=== PATIENT | female | born 1930 | race Caucasian/White ===

== ENCOUNTER 2017-05-13 10:59 | Observation (INO) | payer OTHER ==
[~2017-05-13] VITALS: Ht 152.4 cm; Wt 46.6 kg
[~2017-05-13 10:59] MED LIST: ASPECUNK PO; LSN/10125 PO; OMEP20CA9 PO; SIMV-151 PO; VTMD1000 PO
[2017-05-13] MEDS ORDERED: ASPI-435 PO (11:33)
[2017-05-13 11:49] LABS: BASO % 0.3 %; BASO ABS # 0.01 K/uL (0-0.2); COMPLETE YES; EOS % 0.3 %; HEMATOCRIT 31.6 % (37-47); LYMPH ABS # 0.52 K/uL (1.2-3.4); MEAN CELL VOLUME 92.4 fL (80-100); MEAN CORPUSCULAR HEMOGLOBIN 28.7 pg (25-34); MEAN PLATELET VOLUME 9.8 fL (7.4-10.4); MONO % 3.2 %; NEUT % 82.2 %; PLATELET COUNT 273 K/uL (130-400); RED BLOOD COUNT 3.42 M/uL (4.2-5.4); WHITE BLOOD COUNT 3.71 K/uL (4.8-10.8)
[2017-05-13 12:08] LABS: BUN/CREATININE RATIO 20.9 (10-20); CALCIUM 8.5 mg/dl (8.5-10.1); CREATININE 1.2 mg/dl (0.60-1.20); POTASSIUM 4.6 mmol/L (3.5-5.1)
[2017-05-13] MEDS ORDERED: SODIUM CHLORIDE 0.9% 1000ML 1,000 ML IV STA (12:30)
--- NOTE | 2017-05-13 12:46 | DIAGNOSTIC IMAGING REPORT ---
HEAD WITHOUT CONTRAST (CT) CT DOSE: 537.48 mGy.cm HISTORY: Mental status change dizziness TECHNIQUE: Multiaxial CT images of the head were performed without the use of intravenous contrast. Comparison: None. Findings: The paranasal sinuses and mastoid air cells are clear. The calvarium and skull base are intact. The ventricles and sulci are within normal limits. There is no mass, hematoma, midline shift, or acute infarct. Impression: No acute intracranial abnormality. The above report was generated using voice recognition software. It may contain grammatical, syntax or spelling errors. Electronically signed by: Bg Vera M.D. 05/13/2017 12:45 PM Dictated Date/Time: 05/13/2017 12:44 PM
[2017-05-13] MEDS ORDERED: MECLIZINE HCL 25 MG TAB PO STA (13:29)
--- NOTE | 2017-05-13 13:59 | EMERGENCY ROOM VISIT NOTE ---
History Report prepared by Prem: Kalyani Domingo Under the Supervision of: Dr. Tunde Ellison D.O. First contact with patient: 12:21 Chief Complaint: DIZZY Stated Complaint: DIZZY/NAUSEA Nursing Triage Summary: pt arrived als from home reported dizziness when standing started yesturday afternoon when medics arrived pt was crawling on the steps to get around, pt emisis x one at home pt was provided with 4 mg zofran and 1 mg of ativan in route pt states as long as she is sitting she is fine denies head pain History of Present Illness The patient is a 87 year old female who presents to the Emergency Room with complaints of intermittent dizziness beginning yesterday. The patient states that she began to feel dizzy while she was gardening yesterday. She reports that she was feeling lightheaded and had difficulty standing up so she went inside and went to sleep early. She notes that in the middle of the night she went to the bathroom and was extremely lightheaded and dizzy with standing. The patient states that she stayed on the bathroom floor for 3 hours last night before crawling back to bed. Today she states that her symptoms have not resolved and she is still not able to stand without feeling dizzy. The patient complains of nausea. She denies any falls and loss of consciousness. She notes that movement of her head increases her dizziness. She states that she lives in the [facility] and has noticed ticks on her before. Source of History: patient Onset: yesterday Position: other (global) Quality: other (dizziness) Timing: intermittent Modifying Factors (Worsening): movement, other (standing) Associated Symptoms: + nausea, No LOC Note: Pt complains of lightheadedness. She denies any falls. Review of Systems See HPI for pertinent positives & negatives. A total of 10 systems reviewed and were otherwise negative. Past Medical & Surgical Medical Problems: (1) No Known Active Medical Problems Family History No significant family history Social History Smoking Status: Never Smoker Marital Status: Housing Status: lives with significant other Occupation Status: retired Current/Historical Medications Scheduled Aspirin (Aspirin 81), 81 MG PO DAILY Cholecalciferol (Vitamin D3), 1,000 INTER.UNIT PO QAM Hctz/Lisinopril (Lisinopril/Hctz 10/12.5 Mg), 1 TAB PO DAILY Omeprazole (Prilosec), 20 MG PO DAILY Simvastatin (Simvastatin), 20 MG PO HS Allergies Coded Allergies: Amoxicillin (Unverified Allergy, Unknown, HIVES, 05/13/17) Physical Exam Vital Signs Date Time Temp Pulse Resp B/P (MAP) Pulse Ox O2 Delivery O2 Flow Rate FiO2 05/13/17 13:44 74 16 96 05/13/17 13:31 169/90 05/13/17 13:29 77 16 98 05/13/17 13:15 160/87 05/13/17 12:29 80 18 97 05/13/17 12:28 166/85 05/13/17 12:14 79 16 98 05/13/17 12:11 83 05/13/17 12:04 80 17 169/89 93 Room Air 05/13/17 11:59 79 19 05/13/17 11:44 78 16 88 05/13/17 11:30 83 05/13/17 11:29 82 14 169/89 97 05/13/17 11:14 82 14 95 05/13/17 11:09 36.8 86 16 192/94 100 Room Air 05/13/17 11:03 192/94 Physical Exam VITAL SIGNS: were reviewed as above. GENERAL:Non-toxic in appearance. SKIN: Warm dry and pink. HEAD: Normocephalic and atraumatic. OROPHARYNX: Is clear and moist NECK: Supple without lymphadenopathy or meningismus. LUNGS: clear. HEART: Regular rate and rhythm. ABDOMEN: Soft and nontender. EXTREMITIES: Warm and well perfused. NEUROLOGICALLY: Awake alert and oriented without focal deficit. Cranial nerves 2 -12 are intact. There is no pronator drift. Cerebellar testing is within normal limits. There is no nystagmus. There is no facial droop. Speech is clear. Vision is grossly normal. MUSCULOSKELETAL: Good muscle tone. No evidence of trauma. Medical Decision & Procedures ER Provider Diagnostic Interpretation: CT results as stated below per my review and radiologist interpretation: HEAD WITHOUT CONTRAST (CT) Findings: The paranasal sinuses and mastoid air cells are clear. The calvarium and skull base are intact. The ventricles and sulci are within normal limits. There is no mass, hematoma, midline shift, or acute infarct. Impression: No acute intracranial abnormality. The above report was generated using voice recognition software. It may contain grammatical, syntax or spelling errors. Electronically signed by: Bg Vera M.D. 05/13/2017 12:45 PM Dictated Date/Time: 05/13/2017 12:44 PM Laboratory Results 05/13/17 11:30 Red Blood Count 3.42, Mean Corpuscular Volume 92.4, Mean Corpuscular Hemoglobin 28.7, Mean Corpuscular Hemoglobin Concent 31.0, Mean Platelet Volume 9.8, Neutrophils (%) (Auto) 82.2, Lymphocytes (%) (Auto) 14.0, Monocytes (%) (Auto) 3.2, Eosinophils (%) (Auto) 0.3, Basophils (%) (Auto) 0.3, Neutrophils # (Auto) 3.05, Lymphocytes # (Auto) 0.52, Monocytes # (Auto) 0.12, Eosinophils # (Auto) 0.01, Basophils # (Auto) 0.01 05/13/17 11:30 Test 05/13/17 11:30 White Blood Count 3.71 K/uL (4.8-10.8) Red Blood Count 3.42 M/uL (4.2-5.4) Hemoglobin 9.8 g/dL (12.0-16.0) Hematocrit 31.6 % (37-47) Mean Corpuscular Volume 92.4 fL (80-100) Mean Corpuscular Hemoglobin 28.7 pg (25-34) Mean Corpuscular Hemoglobin Concent 31.0 g/dl (32-36) Platelet Count 273 K/uL (130-400) Mean Platelet Volume 9.8 fL (7.4-10.4) Neutrophils (%) (Auto) 82.2 % Lymphocytes (%) (Auto) 14.0 % Monocytes (%) (Auto) 3.2 % Eosinophils (%) (Auto) 0.3 % Basophils (%) (Auto) 0.3 % Neutrophils # (Auto) 3.05 K/uL (1.4-6.5) Lymphocytes # (Auto) 0.52 K/uL (1.2-3.4) Monocytes # (Auto) 0.12 K/uL (0.11-0.59) Eosinophils # (Auto) 0.01 K/uL (0-0.5) Basophils # (Auto) 0.01 K/uL (0-0.2) RDW Standard Deviation 47.3 fL (36.4-46.3) RDW Coefficient of Variation 13.9 % (11.5-14.5) Immature Granulocyte % (Auto) 0.0 % Immature Granulocyte # (Auto) 0.00 K/uL (0.00-0.02) Anion Gap 7.0 mmol/L (3-11) Est Creatinine Clear Calc Drug Dose 23.3 ml/min Estimated GFR () 46.7 Estimated GFR (Non- 40.3 BUN/Creatinine Ratio 20.9 (10-20) Calcium Level 8.5 mg/dl (8.5-10.1) Total Bilirubin 0.3 mg/dl (0.2-1) Aspartate Amino Transf (AST/SGOT) 20 U/L (15-37) Alanine Aminotransferase (ALT/SGPT) 15 U/L (12-78) Alkaline Phosphatase 59 U/L (45-117) Total Protein 6.4 gm/dl (6.4-8.2) Albumin 3.2 gm/dl (3.4-5.0) Globulin 3.2 gm/dl (2.5-4.0) Albumin/Globulin Ratio 1.0 (0.9-2) Lyme Disease IgG Antibody NEG (NEG) Laboratory results as stated above per my review. Medications Administered Medications (Trade) Dose Ordered Sig/Michaela Route Start Time Stop Time Status Last Admin Dose Admin Sodium Chloride 1,000 ml @ 999 mls/hr Q1H1M STAT IV 05/13/17 12:30 05/13/17 13:30 DC 05/13/17 12:30 999 MLS/HR Meclizine HCl (Antivert Tab) 25 mg NOW STAT PO 05/13/17 13:29 05/13/17 13:30 DC 05/13/17 13:48 25 MG ECG Indication: weakness Rate (beats per minute): 83 Rhythm: normal sinus Findings: no acute ischemic change, no ectopy ED Course 1221: Previous medical records were reviewed. The patient was evaluated in room C7. A complete history and physical examination was performed. 1230: Sodium Chloride 1000 ml @ 999 mls/hr IV. 1329: Antivert Tab 25mg PO. 1331: I reevaluated and updated the patient. She feels the same and is still weak and dizzy when she stands up. 1342: I spoke to Dr. Fan about the patients case. He will evaluate the patient for further management. 1349: On reevaluation, the patient is doing well. I discussed the results and findings with the patient. She verbalized agreement of the treatment plan. The patient was discharged home. Medical Decision Differential includes acute coronary syndrome, myocardial infarction, CVA, TIA, anemia, infection, pneumonia, UTI, pyelonephritis, poor nutrition, dehydration, electrolyte disturbance,hypoglycemia. Medication Reconciliation: I attest that I have personally reviewed the patient' s current medication list. Blood pressure Screening: Patient was found to have an elevated blood pressure and was referred to their primary doctor for recheck and further treatment. This is an 87-year-old female who presents to the ED with a chief complaint of feeling dizzy when she was standing up when she awoke this morning. She states that she was also dizzy yesterday while she was gardening and this is when her symptoms started. She states that she got up to go the bathroom in the middle the night and became dizzy and lightheaded and had to crawl to the bathroom. Her dizziness seems to be worse with any movement of her head. She states that she was even feeling dizzy while she was crawling today. She did not have any focal deficits. No headaches. She did have 1 episode of vomiting associated with her dizziness this morning. Denies recent illness or fevers. No chest pains or shortness of breath. Initial blood pressure here was 192/94. This improved to 169/89. The patient has a normal neuro exam without appreciable nystagmus. She has no focal weakness. Her hemoglobin today is 9.8. She has guaiac negative stools. BUN is 25. Complete metabolic panel was unremarkable. Glucose is 138. Normal sinus rhythm was seen on the EKG. CT scan of the head did not show any acute process. The patient was treated with IV fluids. She was given some by mouth meclizine. She was without change. She was quite symptomatic when she would attempt to move. She did not feel like she could walk. Because of the continuing symptoms, she'll be seen by the hospitalist for further inpatient evaluation. Consults Time Called: [phone] Consulting Physician: Dr. Meng Yang Returned Call: [address] Fan about the patients case. He will evaluate the patient for further management. Impression Primary Impression: Dizziness Additional Impression: Weakness Scribe Attestation The scribe's documentation has been prepared under my direction and personally reviewed by me in its entirety. I confirm that the note above accurately reflects all work, treatment, procedures, and medical decision making performed by me. Departure Information Dispostion Being Evaluated By Hospitalist Referrals No Doctor, Assigned (PCP) Patient Instructions My [facility] Problem Qualifiers
[2017-05-13] MEDS ORDERED: ACETAMINOPHEN 325 MG TAB PO PRN (14:15)
[2017-05-13] MEDS ORDERED: ONDANSETRON INJ 2 MG/ML 2 ML VIAL IV PRN (14:15)
[2017-05-13 14:34] LABS: URINE APPEARANCE CLEAR (CLEAR); URINE BILIRUBIN NEG (NEG); URINE COLOR YELLOW; URINE NITRITE NEG (NEG); URINE PH 7.5 (4.5-7.5); URINE SPECIFIC GRAVITY 1.015 (1.000-1.030); UROBILINOGEN NEG (NEG); ZZUR CULT IF INDIC CLEAN CATCH NO
[2017-05-13 14:41] LABS: MANUAL MICROSCOPIC REQUIRED? NO; REVIEW REQ? NO
[2017-05-13] MEDS ORDERED: LISINOPRIL 20 MG TAB PO STA (14:44)
--- NOTE | 2017-05-13 14:45 | History and Physical ---
History & Physical Date & Time of Service: May 13, 2017 at 14:17 Chief Complaint: Dizzy/Nausea Primary Care Physician: John Parikh M.D. History of Present Illness Source: patient, family, clinic records This is an 87 year old female who lives alone, with a PMH of HTN, HLD, CKD stage 3 presents with a one day history of dizziness, weakness, nausea/vomiting - she states that she was working in the yard yesterday doing some gardening - states that she got dizzy and went back inside. At night, she tried walking to the bathroom and vomiting numerous times due to dizziness; had to crawl to get to the bathroom; remained dizzy, weak, tired today (May 13) and so presented to the ER. Has never had this before. Was not sick prior to this event. Son mentions that she does not drink enough water. Patient denies chest pain or shortness of breath. No fevers/chills. Family History No significant family history Social History Smoking Status: Never Smoker Marital Status: Occupational Status: retired Multi-Drug Resistant Organisms History of MDRO: No Allergies Coded Allergies: Amoxicillin (Unverified Allergy, Unknown, HIVES, 05/13/17) Home Medications Scheduled Aspirin (Aspirin 81), 81 MG PO DAILY Cholecalciferol (Vitamin D3), 1,000 INTER.UNIT PO QAM Hctz/Lisinopril (Lisinopril/Hctz 10/12.5 Mg), 1 TAB PO DAILY Omeprazole (Prilosec), 20 MG PO DAILY Simvastatin (Simvastatin), 20 MG PO HS Review of Systems Constitutional: + weakness, + fatigue, No fever, No chills Eyes: No worsening of vision ENT: No hearing loss Respiratory: No cough, No sputum, No shortness of breath, No dyspnea on exertion, No dyspnea at rest, No hemoptysis Cardiovascular: No chest pain, No edema, No palpitations Abdomen: + nausea, + vomiting, No pain, No diarrhea, No constipation, No GI bleeding Musculoskeletal: No joint pain, No muscle pain Genitourinary - Female: No dysuria, No urinary frequency, No urinary urgency, No urinary incontinence, No urinary retention, No hematuria Neurologic: + weakness, + vertigo, + balance problems, No memory loss, No paralysis, No numbness/tingling Psychiatric: No depression symptoms, No anxiety, No insomnia Endocrine: No fatigue Hematologic / Lymphatic: No abnormal bleeding/bruising Integumentary: No rash Allergic / Immunologic: No environmental allergies, No seasonal allergies Physical Exam Vital Signs Date Time Temp Pulse Resp B/P (MAP) Pulse Ox O2 Delivery O2 Flow Rate FiO2 05/13/17 13:44 74 16 96 05/13/17 13:31 169/90 05/13/17 13:29 77 16 98 05/13/17 13:15 160/87 05/13/17 12:29 80 18 97 05/13/17 12:28 166/85 05/13/17 12:14 79 16 98 05/13/17 12:11 83 05/13/17 12:04 80 17 169/89 93 Room Air 05/13/17 11:59 79 19 05/13/17 11:44 78 16 88 05/13/17 11:30 83 05/13/17 11:29 82 14 169/89 97 05/13/17 11:14 82 14 95 05/13/17 11:09 36.8 86 16 192/94 100 Room Air 05/13/17 11:03 192/94 General Appearance: no apparent distress Head: normocephalic, atraumatic Eyes: normal inspection ENT: hearing grossly normal Neck: supple Respiratory/Chest: chest non-tender, lungs clear, normal breath sounds, no respiratory distress, no accessory muscle use Cardiovascular: regular rate, rhythm, no edema, no murmur Abdomen/GI: normal bowel sounds, non tender, soft Extremities/Musculoskelatal: no calf tenderness, normal capillary refill, no pedal edema Neurologic/Psych: no motor/sensory deficits, alert, normal mood/affect Skin: normal color Lymphatic: no adenopathy Diagnostics Laboratory Results Results Past 24 Hours Test 05/13/17 11:30 05/13/17 14:11 Range/Units White Blood Count 3.71 4.8-10.8 K/uL Red Blood Count 3.42 4.2-5.4 M/uL Hemoglobin 9.8 12.0-16.0 g/dL Hematocrit 31.6 37-47 % Mean Corpuscular Volume 92.4 80-100 fL Mean Corpuscular Hemoglobin 28.7 25-34 pg Mean Corpuscular Hemoglobin Concent 31.0 32-36 g/dl Platelet Count 273 130-400 K/uL Mean Platelet Volume 9.8 7.4-10.4 fL Neutrophils (%) (Auto) 82.2 % Lymphocytes (%) (Auto) 14.0 % Monocytes (%) (Auto) 3.2 % Eosinophils (%) (Auto) 0.3 % Basophils (%) (Auto) 0.3 % Neutrophils # (Auto) 3.05 1.4-6.5 K/uL Lymphocytes # (Auto) 0.52 1.2-3.4 K/uL Monocytes # (Auto) 0.12 0.11-0.59 K/uL Eosinophils # (Auto) 0.01 0-0.5 K/uL Basophils # (Auto) 0.01 0-0.2 K/uL RDW Standard Deviation 47.3 36.4-46.3 fL RDW Coefficient of Variation 13.9 11.5-14.5 % Immature Granulocyte % (Auto) 0.0 % Immature Granulocyte # (Auto) 0.00 0.00-0.02 K/uL Sodium Level 145 136-145 mmol/L Potassium Level 4.6 3.5-5.1 mmol/L Chloride Level 109 98-107 mmol/L Carbon Dioxide Level 29 21-32 mmol/L Anion Gap 7.0 3-11 mmol/L Blood Urea Nitrogen 25 7-18 mg/dl Creatinine 1.20 0.60-1.20 mg/dl Est Creatinine Clear Calc Drug Dose 23.3 ml/min Estimated GFR () 46.7 Estimated GFR (Non- 40.3 BUN/Creatinine Ratio 20.9 10-20 Random Glucose 138 70-99 mg/dl Calcium Level 8.5 8.5-10.1 mg/dl Total Bilirubin 0.3 0.2-1 mg/dl Aspartate Amino Transf (AST/SGOT) 20 15-37 U/L Alanine Aminotransferase (ALT/SGPT) 15 12-78 U/L Alkaline Phosphatase 59 45-117 U/L Total Protein 6.4 6.4-8.2 gm/dl Albumin 3.2 3.4-5.0 gm/dl Globulin 3.2 2.5-4.0 gm/dl Albumin/Globulin Ratio 1.0 0.9-2 Lyme Disease IgG Antibody NEG NEG Diagnostic Radiology HEAD WITHOUT CONTRAST (CT) CT DOSE: 537.48 mGy.cm HISTORY: Mental status change dizziness TECHNIQUE: Multiaxial CT images of the head were performed without the use of intravenous contrast. Comparison: None. Findings: The paranasal sinuses and mastoid air cells are clear. The calvarium and skull base are intact. The ventricles and sulci are within normal limits. There is no mass, hematoma, midline shift, or acute infarct. Impression: No acute intracranial abnormality. EKG Normal sinus rhythm Normal ECG Impression Assessment and Plan This is an 87 year old female who lives alone, with a PMH of HTN, HLD, CKD stage 3 presents with a one day history of dizziness Vertigo patient with dizziness upon standing possibly dehydration, heat exhaustion, vertigo playing a part in dizziness Head CT negative EKG with no will obtain PT/OT - PT for Zev meclizine PRN Zofran PRN will check an echo orthostatics monitor in tele will give gentle hydration CKD stage 3 creatinine = 1.2 close to baseline will give some IV hydration, possibly dehydrated HTN blood pressure elevated on admission patient takes HCTZ-Lisinopril hold thiazide to avoid further dehydration give Lisinopril 20mg DVT ppx subq heparin FULL CODE will need discharge planning evaluation - lives alone VTE Prophylaxis VTE Risk Assessment Done? Y/N: Yes Risk Level: Moderate
[2017-05-13] MEDS ORDERED: IV FLUIDS COMPLETED PRN (15:00)
[2017-05-13 15:45] VITALS: BP 180/88; PULSE 80; TEMP 36.4; O2SAT 97; Ht 152.4 cm; Wt 46.6 kg
[2017-05-13 15:46] LABS: PROTHROMBIN TIME (PATIENT) 10.8 SECONDS (9.0-12.0)
[2017-05-13 16:56] VITALS: BP 172/86
[2017-05-13] MEDS: SODIUM CHLORIDE 0.9% 1000ML 1,000 ML IV SCH (17:06)
[2017-05-13] MEDS: BOOST VANILLA PO SCH ×2 (17:12)
[2017-05-13 18:25] VITALS: BP 146/72
[2017-05-13 19:16] VITALS: BP 165/78; PULSE 75; TEMP 36.4; O2SAT 97
[2017-05-13] MEDS: SIMVASTATIN 20 MG TAB PO SCH (21:26)
[2017-05-13] MEDS: HEPARIN SOD 5000 UNIT/0.5 ML CARP SQ SCH (21:27)
[2017-05-13 23:09] VITALS: BP 128/67; PULSE 79; TEMP 36.5; O2SAT 96
[2017-05-13 23:17] VITALS: BP_SYST 156; BP_SYST 162; BP_DIAS 85; BP_DIAS 89; PULSE 82; PULSE 83
[2017-05-14] VITALS (11 sets, daily range): BP systolic 119–196; BP diastolic 66–105; PULSE 68–85; TEMP 36.4–36.9; O2SAT 93–99
[2017-05-14 02:31] LABS: CKMB/CK RATIO 1.4 (0-3.0)
[2017-05-14] MEDS: SODIUM CHLORIDE 0.9% 1000ML 1,000 ML IV SCH ×2 (03:14→15:22)
[2017-05-14] MEDS: HEPARIN SOD 5000 UNIT/0.5 ML CARP SQ SCH ×2 (06:03→20:23)
[2017-05-14] MEDS: BOOST VANILLA PO SCH ×6 (08:02→16:20)
[2017-05-14] MEDS: ASPIRIN 81 MG ECTAB PO SCH (08:02)
[2017-05-14] MEDS: LISINOPRIL 20 MG TAB PO SCH (08:03)
[2017-05-14] MEDS: MECLIZINE HCL 25 MG TAB PO PRN ×2 (08:04→12:54)
[2017-05-14 08:21] LABS: CKMB/CK RATIO 1.1 (0-3.0)
--- NOTE | 2017-05-14 12:50 | Progress Note ---
Medicine Progress Note Date & Time of Visit: May 14, 2017 at 12:50. Subjective seen with son at bedside sitting on the bedside chair, alert, oriented x 3 states her dizziness is about the same worse with standing, moving her head to the left denies any other neuro symptoms no chest pain, dyspnea, dizziness, nausea no other symptoms Objective Last 8 Hrs Date Time Temp Pulse Resp B/P (MAP) Pulse Ox O2 Delivery O2 Flow Rate FiO2 05/14/17 11:40 36.6 73 16 166/97 (120) 99 Room Air 05/14/17 08:00 Room Air 05/14/17 07:59 157/80 (105) 05/14/17 06:44 85 18 193/101 (131) 96 Room Air 05/14/17 06:42 85 18 176/88 (117) 97 Room Air 05/14/17 06:39 36.4 82 16 175/87 (116) 93 Room Air Physical Exam: General- oriented x 3, not in distress, speaks in sentences with no effort Head- atraumatic Eyes- EOMI, anicteric ENT- oropharynx clear Neck- supple, no JVD, no adenopathy, no thyromegaly Lungs- clear breath sounds bilaterally Heart- regular rhythm; no murmur, normal rate Abdomen- normal bowel sounds, soft, nontender, non distended Extremities- no pretibial edema, no calf tenderness Neuro- alert, oriented x 3; PERRL, EOMI; no facial palsy; no dysarthria; motor 5 /5 bilaterally; sensation 100% Skin- warm & dry Laboratory Results: Last 24 Hours Test 05/13/17 14:09 05/13/17 20:10 05/13/17 21:26 05/14/17 02:02 Urine Color YELLOW Urine Appearance CLEAR Urine pH 7.5 Urine Specific [place] 1.015 Urine Protein NEG Urine Glucose (UA) NEG Urine Ketones NEG Urine Occult Blood NEG Urine Nitrite NEG Urine Bilirubin NEG Urine Urobilinogen NEG Urine Leukocyte Esterase NEG Total Creatine Kinase U/L 243 U/L 227 U/L Creatine Kinase MB 4.1 ng/ml 3.1 ng/ml Creatine Kinase MB Ratio 1.4 Troponin I 0.015 ng/ml 0.019 ng/ml Test 05/14/17 07:42 Total Creatine Kinase 220 U/L Creatine Kinase MB 2.4 ng/ml Creatine Kinase MB Ratio 1.1 Troponin I < 0.015 ng/ml Assessment & Plan 87 year old female with history of hypertension presenting with dizziness. DIZZINESS, LIKELY VERTIGO - symptoms preceded by doing yardwork - CT head: negative Brain MRI: no acute CVA Echo: * -- Conclusions -- * Ejection Fraction = 65-70%. * Grade I diastolic dysfunction, (abnormal relaxation pattern). * Aortic valve sclerosis mild, without significant aortic valvular stenosis. * There is mild tricuspid regurgitation. * Doppler findings do not suggest pulmonary hypertension. Cardiac markers: negative Orthostatic BP: negative -- add PRN Reglan and Ativan PO for severe dizziness continue Meclizine PRN -- PT performed Zev's maneuver with no apparent change UNCONTROLLED HYPERTENSION -- usually on Lisinopril/HCTZ10/12.5mg po daily -- d/c HCTZ as patient seemed dehydrated on admission -- Lisinopril increased to 20mg po Amlodipine 5mg po added -- monitor BP CKD stage 3 creatinine = 1.2 close to baseline -- received IV fluids monitor DVT ppx subq heparin FULL CODE Disposition pending lives alone PT/OT eval Current Inpatient Medications: Current Inpatient Medications Medications (Trade) Dose Ordered Sig/Michaela Route Start Time Stop Time Status Last Admin Dose Admin Sodium Chloride 1,000 ml @ 80 mls/hr [id number] IV 05/13/17 14:11 06/12/17 14:10 05/14/17 03:14 80 MLS/HR Acetaminophen (Tylenol Tab) 650 mg Q4H PRN PO 05/13/17 14:15 06/12/17 14:14 Ondansetron HCl (Zofran Inj) 4 mg Q6H PRN IV 05/13/17 14:15 06/12/17 14:14 Meclizine HCl (Antivert Tab) 25 mg TID PRN PO 05/13/17 14:15 06/12/17 14:14 05/14/17 08:04 25 MG Aspirin (Ecotrin Tab) 81 mg DAILY PO 05/14/17 09:00 06/13/17 08:59 05/14/17 08:02 81 MG Simvastatin (Zocor Tab) 20 mg HS PO 05/13/17 21:00 06/12/17 20:59 05/13/17 21:26 20 MG Lisinopril (Zestril Tab) 20 mg QAM PO 05/14/17 09:00 06/13/17 08:59 05/14/17 08:03 20 MG Enteral Nutritional Formula (Boost) 1 can TIDM PO 05/13/17 16:45 06/12/17 17:59 05/14/17 11:25 1 CAN Miscellaneous (Iv Fluids Completed) 1 ea PRN PRN N/A 05/13/17 15:00 05/13/18 14:59 Heparin Sodium (Porcine) (Heparin Sq 5000 Unit/0.5ml) 5,000 unit Q12 SQ 05/14/17 21:00 06/12/17 21:59 UNV
[2017-05-14] MEDS ORDERED: AMLODIPINE BESYLATE 5 MG TAB PO ONE ×2 (13:00→17:30)
--- NOTE | 2017-05-14 14:55 | ECHOCARDIOGRAM REPORT ---
*NOTICE TO RECEIVING [employer] [employer] This information is strictly Confidential and protected under [place] law. [place] law prohibits you from making any further disclosure of this information unless further disclosure is expressly permitted by the written consent of the person to whom it pertains or is authorized by law. A general authorization for the release of medical or other information is not sufficient for this purpose. Hospital accepts no responsibility if the information is made available to any other person, INCLUDING THE PATIENT. Interpretation Summary * Name: WILLIS MONCADA V Study Date: 05/14/2017 07:10 AM BP: 119/66 mmHg * Patient Location: C.2E\S\E209\S\1 HR: 81 * : 1930 (M/d/yyyy) Gender: Female Height: 60 in * Age: 87 yrs Ethnicity: [place] Weight: 105 lb * Ordering Physician: Marysol Fan * Referring Physician: Self, Referred * Performed By: Stephanie Poon RCS * * BSA: 1.4 m2 * The study was technically adequate. * There is no comparison study available. * -- Conclusions -- * Ejection Fraction = 65-70%. * Grade I diastolic dysfunction, (abnormal relaxation pattern). * Aortic valve sclerosis mild, without significant aortic valvular stenosis. * There is mild tricuspid regurgitation. * Doppler findings do not suggest pulmonary hypertension. Procedure Details * A complete two-dimensional transthoracic echocardiogram was performed (2D, M-mode, Doppler and color flow Doppler). Left Ventricle * The left ventricle is normal in size. * There is no thrombus. * There is normal left ventricular wall thickness. * Ejection Fraction = 65-70%. * Left ventricular systolic function is normal. * The left ventricular wall motion is normal. Right Ventricle * The right ventricle is normal size. * The right ventricular systolic function is normal as assessed by tricuspid annular plane systolic excursion (TAPSE) (normal >1.5 cm). Atria * The left atrial size is normal. * Right atrial size is normal. * There is no evidence of atrial septal defect, but resolution does not allow assessment for a patent foramen ovale. Mitral Valve * There is moderate mitral annular calcification. * There is no mitral valve stenosis. * Significant mitral regurgitation is absent. Tricuspid Valve * The tricuspid valve is normal. * There is no tricuspid stenosis. * There is mild tricuspid regurgitation. * Doppler findings do not suggest pulmonary hypertension. Aortic Valve * The aortic valve is trileaflet. * Aortic valve sclerosis mild, without significant aortic valvular stenosis. * Aortic stenosis is absent. * There is no significant aortic regurgitation. Pulmonic Valve * The pulmonary valve is inadequately visualized, but the Doppler data is adequate for interpretation. * There is no pulmonic valvular stenosis. * Trace pulmonic valvular regurgitation. Great Vessels * The aortic root is normal size. Pericardium/Pleural * There is no pericardial effusion. Great Vessels * Normal inferior vena cava diameter and respiratory variation suggests normal central venous pressure. Left Ventricular Diastolic Function * Grade I diastolic dysfunction, (abnormal relaxation pattern). MMode 2D Measurements and Calculations IVSd 1.0 cm LVIDd 3.4 cm LVIDs 2.3 cm LVPWd 1.0 cm IVS/LVPW 0.98 FS 34.0 % EDV(Teich) 48.4 ml ESV(Teich) 17.4 ml EF(Teich) 64.1 % EDV(cubed) 40.3 ml ESV(cubed) 11.6 ml EF(cubed) 71.3 % LV mass(C)d 102.9 grams LV mass(C)dI 72.5 grams/m\S\2 SV(Teich) 31.1 ml SI(Teich) 21.9 ml/m\S\2 SV(cubed) 28.8 ml SI(cubed) 20.3 ml/m\S\2 Ao root diam 2.8 cm Ao root area 6.1 cm\S\2 asc Aorta Diam 3.1 cm LVOT diam 2.0 cm LVOT area 3.0 cm\S\2 LVAd ap4 21.7 cm\S\2 LVLd ap4 7.7 cm EDV(MOD-sp4) 49.7 ml EDV(sp4-el) 51.9 ml LVAs ap4 8.8 cm\S\2 LVLs ap4 5.7 cm ESV(MOD-sp4) 12.3 ml ESV(sp4-el) 11.4 ml EF(MOD-sp4) 75.3 % EF(sp4-el) 78.0 % LVAd ap2 19.7 cm\S\2 LVLd ap2 7.7 cm EDV(MOD-sp2) 41.5 ml EDV(sp2-el) 42.4 ml LVAs ap2 9.5 cm\S\2 LVLs ap2 5.7 cm ESV(MOD-sp2) 14.7 ml ESV(sp2-el) 13.4 ml EF(MOD-sp2) 64.5 % EF(sp2-el) 68.3 % LVLd %diff 0.88 % EDV(MOD-bp) 45.6 ml LVLs %diff -0.49 % ESV(MOD-bp) 13.4 ml EF(MOD-bp) 70.6 % SV(MOD-sp4) 37.5 ml SI(MOD-sp4) 26.4 ml/m\S\2 SV(MOD-sp2) 26.8 ml SI(MOD-sp2) 18.9 ml/m\S\2 SV(MOD-bp) 32.2 ml SI(MOD-bp) 22.7 ml/m\S\2 SV(sp4-el) 40.5 ml SI(sp4-el) 28.5 ml/m\S\2 SV(sp2-el) 28.9 ml SI(sp2-el) 20.4 ml/m\S\2 Doppler Measurements and Calculations MV E max essie 102.3 cm/sec MV A max essie 130.0 cm/sec MV E/A 0.79 MV dec time 0.18 sec Ao V2 max 152.0 cm/sec Ao max PG 9.2 mmHg Ao max PG (full) 5.3 mmHg DAJA(V,A) 2.0 cm\S\2 DAJA(V,D) 2.0 cm\S\2 LV V1 max PG 4.0 mmHg LV V1 max 99.9 cm/sec TR max essie 259.8 cm/sec
[2017-05-14 15:13] LABS: BASO % 0.3 %; BASO ABS # 0.01 K/uL (0-0.2); COMPLETE YES; EOS % 7.2 %; HEMATOCRIT 29.9 % (37-47); LYMPH % 33.7 %; LYMPH ABS # 1.03 K/uL (1.2-3.4); MEAN CELL VOLUME 93.4 fL (80-100); MEAN CORPUSCULAR HEMOGLOBIN 29.1 pg (25-34); MEAN CORPUSCULAR HGB CONC 31.1 g/dl (32-36); MEAN PLATELET VOLUME 9.3 fL (7.4-10.4); MONO % 8.8 %; PLATELET COUNT 253 K/uL (130-400); WHITE BLOOD COUNT 3.06 K/uL (4.8-10.8)
[2017-05-14 15:36] LABS: CREATININE 1.3 mg/dl (0.60-1.20)
[2017-05-14 15:37] LABS: BUN/CREATININE RATIO 18.1 (10-20); CALCIUM 8.5 mg/dl (8.5-10.1); POTASSIUM 4.4 mmol/L (3.5-5.1)
--- NOTE | 2017-05-14 16:11 | DIAGNOSTIC IMAGING REPORT ---
BRAIN WITHOUT CONTRAST HISTORY: Mental status change r/o cva TECHNIQUE: Multiplanar multisequence MRI of the brain was performed without the use of contrast. COMPARISON STUDY: None. FINDINGS: There are no areas of restricted diffusion to suggest acute infarction. The midline structures are intact. The paranasal sinuses are clear. The mastoid air cells are clear. The ventricles and sulci are within normal limits for age. There is no mass, hematoma, midline shift. The major vascular flow-voids at the skull base are well maintained. Mild cerebral atrophy. Moderate chronic small vessel change throughout both cerebral hemispheres. IMPRESSION: 1. No evidence for an acute ischemic event. 2. Moderate chronic small vessel change. 3. Mild cerebral atrophy. The above report was generated using voice recognition software. It may contain grammatical, syntax or spelling errors. Electronically signed by: Bg Vera M.D. 05/14/2017 4:10 PM Dictated Date/Time: 05/14/2017 4:06 PM
[2017-05-14] MEDS ORDERED: METOCLOPRAMIDE HCL INJ 5 MG/ML 2 ML VIAL IV STA (17:27)
[2017-05-14] MEDS ORDERED: METOCLOPRAMIDE HCL INJ 5 MG/ML 2 ML VIAL IV PRN (17:30)
[2017-05-14] MEDS ORDERED: LORAZEPAM 0.5 MG TAB PO PRN (17:30)
[2017-05-14] MEDS: SIMVASTATIN 20 MG TAB PO SCH (20:21)
[2017-05-15] VITALS (10 sets, daily range): BP systolic 114–153; BP diastolic 58–83; PULSE 80–87; TEMP 36.7–36.8; O2SAT 93–97
[2017-05-15 06:46] LABS: BUN/CREATININE RATIO 17.3 (10-20); CALCIUM 8.3 mg/dl (8.5-10.1); CREATININE 1.2 mg/dl (0.60-1.20); POTASSIUM 4.1 mmol/L (3.5-5.1)
[2017-05-15 07:13] LABS: BASO % 0.2 %; BASO ABS # 0.01 K/uL (0-0.2); COMPLETE YES; HEMATOCRIT 31.5 % (37-47); LYMPH % 25.4 %; LYMPH ABS # 1.04 K/uL (1.2-3.4); MEAN CELL VOLUME 93.2 fL (80-100); MEAN CORPUSCULAR HEMOGLOBIN 28.7 pg (25-34); MEAN CORPUSCULAR HGB CONC 30.8 g/dl (32-36); MEAN PLATELET VOLUME 9.9 fL (7.4-10.4); MONO % 12.2 %; NEUT % 54.2 %; PLATELET COUNT 264 K/uL (130-400); RED BLOOD COUNT 3.38 M/uL (4.2-5.4)
[2017-05-15] MEDS: BOOST VANILLA PO SCH ×6 (07:30→16:45)
[2017-05-15] MEDS: HEPARIN SOD 5000 UNIT/0.5 ML CARP SQ SCH ×2 (09:00→20:06)
[2017-05-15] MEDS: LISINOPRIL 20 MG TAB PO SCH (09:00)
[2017-05-15] MEDS: ASPIRIN 81 MG ECTAB PO SCH (09:00)
[2017-05-15] MEDS: AMLODIPINE BESYLATE 5 MG TAB PO SCH (09:00)
--- NOTE | 2017-05-15 12:13 | Progress Note ---
Internal Med Progress Note Date of Service: May 15, 2017. Provider Documentation: SUBJECTIVE: Patient feeling a little better than yesterday But still when tries to walk, continues to feel off balance. Per RN, difficulty ambulating without assistance due to vertigo. No headache, nausea, vomiting, localized weakness/numbness/tingling, fever, chills, nasal congestion, runny nose, ear pain, cold like symptoms No prior hx of similar symptoms. No association with head movement OBJECTIVE: Vital Signs-as noted below Exam: General-AAOX3, no distress Eyes-No nystagmus, No icterus, EOMI Neck-Supple, No JVD Lungs-AEBE, no wheezing, rhonchi Heart-S1, S2 normal, no murmurs Abdomen-Soft, non tender, non distended, BS present Extremities-No edema Neuro-AAOX3, No nystagmus. Power 5/5 all ext, No sensory deficits. Gait off balance Lab data as noted below. ASSESSMENT & PLAN: This is an 87 year old female who lives alone, with a PMH of HTN, HLD, CKD stage 3 presents with one day history of dizziness. DIZZINESS Likely peripheral vertigo as says feels off balance and room spins when she tries to stand. Probable contributing factor to dizziness: Heat exhaustion as was doing yard work prior to coming. Unable to ambulate without losing balance. Prior to admission was able to ambulate without assistance. -IV Fluids -Work up- MRI negative for stroke, CT head negative, Orthostats negative. C/o some allergies but no common cold prior to these symptoms. -IV Zofran PRN, Meclizine PRN will be changed to scheduled to see if it helps -PT/OT ordered- Zev performed but didnt help much. PT/ OT recommends rehab as unable to maintain balance while ambulating. Patient hesitant CKD stage 3 creatinine = 1.2 close to baseline -IVF HTN blood pressure elevated on admission patient takes HCTZ-Lisinopril at home -HCTZ held and lisinopril increased to 20mg daily DVT ppx subq heparin FULL CODE DISPOSITION Patient continues to feel off balance and not safe to return home by herself. Agreeable for rehab if doesnt do well with PT/OT today Vital Signs: Date Time Temp Pulse Resp B/P (MAP) Pulse Ox O2 Delivery O2 Flow Rate FiO2 05/15/17 11:31 36.8 82 18 132/69 (90) 93 Room Air 05/15/17 11:20 95 Room Air 05/15/17 07:46 Room Air 05/15/17 07:39 86 153/75 (101) 05/15/17 07:39 150/81 (104) 05/15/17 07:38 36.8 82 18 153/83 (106) 95 Room Air 05/15/17 04:44 36.7 80 18 145/79 (101) 97 Room Air 83 149/80 (103) 87 150/81 (104) 05/15/17 04:00 Room Air 05/15/17 00:02 36.7 80 16 131/64 (86) 95 Room Air 05/14/17 23:59 Room Air 05/14/17 20:00 Room Air 05/14/17 19:04 174/103 (126) 05/14/17 19:02 164/105 (124) 05/14/17 19:00 36.9 82 22 148/75 (99) 95 Room Air 05/14/17 17:19 187/89 (121) 05/14/17 17:19 185/82 (116) 05/14/17 16:34 36.8 79 20 196/94 (128) 97 Room Air 05/14/17 16:00 Room Air Lab Results: Results Past 24 Hours Test 05/14/17 15:00 05/15/17 05:39 Range/Units White Blood Count 3.06 4.10 4.8-10.8 K/uL Red Blood Count 3.20 3.38 4.2-5.4 M/uL Hemoglobin 9.3 9.7 12.0-16.0 g/dL Hematocrit 29.9 31.5 37-47 % Mean Corpuscular Volume 93.4 93.2 80-100 fL Mean Corpuscular Hemoglobin 29.1 28.7 25-34 pg Mean Corpuscular Hemoglobin Concent 31.1 30.8 32-36 g/dl Platelet Count 253 264 130-400 K/uL Mean Platelet Volume 9.3 9.9 7.4-10.4 fL Neutrophils (%) (Auto) 50.0 54.2 % Lymphocytes (%) (Auto) 33.7 25.4 % Monocytes (%) (Auto) 8.8 12.2 % Eosinophils (%) (Auto) 7.2 8.0 % Basophils (%) (Auto) 0.3 0.2 % Neutrophils # (Auto) 1.53 2.22 1.4-6.5 K/uL Lymphocytes # (Auto) 1.03 1.04 1.2-3.4 K/uL Monocytes # (Auto) 0.27 0.50 0.11-0.59 K/uL Eosinophils # (Auto) 0.22 0.33 0-0.5 K/uL Basophils # (Auto) 0.01 0.01 0-0.2 K/uL RDW Standard Deviation 48.7 47.9 36.4-46.3 fL RDW Coefficient of Variation 14.2 14.1 11.5-14.5 % Immature Granulocyte % (Auto) 0.0 0.0 % Immature Granulocyte # (Auto) 0.00 0.00 0.00-0.02 K/uL Sodium Level 146 145 136-145 mmol/L Potassium Level 4.4 4.1 3.5-5.1 mmol/L Chloride Level 113 112 98-107 mmol/L Carbon Dioxide Level 29 29 21-32 mmol/L Anion Gap 4.0 4.0 3-11 mmol/L Blood Urea Nitrogen 24 21 7-18 mg/dl Creatinine 1.30 1.20 0.60-1.20 mg/dl Est Creatinine Clear Calc Drug Dose 21.5 23.3 ml/min Estimated GFR () 42.4 46.7 Estimated GFR (Non- 36.6 40.3 BUN/Creatinine Ratio 18.1 17.3 10-20 Random Glucose 87 86 70-99 mg/dl Calcium Level 8.5 8.3 8.5-10.1 mg/dl Total Creatine Kinase 135 26-192 U/L
[2017-05-15] MEDS: MECLIZINE HCL 25 MG TAB PO SCH ×2 (14:00→20:06)
--- NOTE | 2017-05-15 17:44 | DIAGNOSTIC IMAGING REPORT ---
MRA OF THE INTRACRANIAL CIRCULATION WITHOUT CONTRAST CLINICAL HISTORY: Gait and balance. Evaluate for posterior circulation stroke. COMPARISON STUDY: Head CT May 13, 2017 and MRI of the brain May 14, 2017. TECHNIQUE: Utilizing a 1.5 Betzaida magnet and 3-D [id number] technique, unenhanced MRA of the intracranial circulation was obtained. FINDINGS: The bilateral M1, M2, A1 and A2 segments are patent. There is no abrupt cut off within the intracranial circulation. The right vertebral artery is dominant. The left vertebral artery is diminutive with asymmetric diminished flow when compared to the right. However, no abrupt vessel cut off is identified within the posterior circulation. There is mild narrowing of the intracranial portion of the left vertebral artery. No intracranial aneurysm is identified. IMPRESSION: 1. No abrupt vessel cut off within the intracranial circulation. No intracranial aneurysm identified. 2. Dominant right vertebral artery with diminutive left vertebral artery with mild to moderate narrowing of the intracranial portion of the left vertebral artery Electronically signed by: Guillermo Gonsalez M.D. 05/15/2017 5:43 PM Dictated Date/Time: 05/15/2017 5:38 PM
--- NOTE | 2017-05-15 17:51 | DIAGNOSTIC IMAGING REPORT ---
NECK MRA HISTORY: Gait imbalance. Possible posterior circulation stroke/ischemia. TECHNIQUE: [id number] and gadolinium-enhanced MRA of the neck was performed both before and after the intravenous administration of contrast. All measurements were calculated based on NASCET criteria. COMPARISON STUDY: None. FINDINGS: The aortic arch and proximal great vessels are widely patent. There is no significant stenosis, occlusion, or dissection identified within the bilateral common carotid, or internal carotid arteries. The proximal vertebral arteries were not included in the angiographic slab. The right vertebral artery is dominant. There are several accident mild areas of left vertebral artery narrowing which are unlikely to be hemodynamically significant. IMPRESSION: 1. No evidence of hemodynamically significant carotid stenosis 2. Dominant right vertebral 3. Areas of mild multifocal left vertebral artery narrowing Electronically signed by: Donell Ordoñez M.D. 05/15/2017 5:50 PM Dictated Date/Time: 05/15/2017 5:43 PM
[2017-05-15] MEDS: SIMVASTATIN 20 MG TAB PO SCH (20:06)
[2017-05-16] VITALS (11 sets, daily range): BP systolic 120–173; BP diastolic 66–83; PULSE 76–94; TEMP 36.4–37; O2SAT 95–100
[2017-05-16 06:42] LABS: BASO % 0.2 %; BASO ABS # 0.01 K/uL (0-0.2); COMPLETE YES; EOS % 8.9 %; HEMATOCRIT 32.8 % (37-47); IG% 0.2 %; LYMPH % 23.1 %; LYMPH ABS # 0.96 K/uL (1.2-3.4); MEAN CELL VOLUME 92.4 fL (80-100); MEAN CORPUSCULAR HEMOGLOBIN 27.9 pg (25-34); MEAN CORPUSCULAR HGB CONC 30.2 g/dl (32-36); MEAN PLATELET VOLUME 9.6 fL (7.4-10.4); NEUT % 53.6 %; PLATELET COUNT 272 K/uL (130-400); RED BLOOD COUNT 3.55 M/uL (4.2-5.4); WHITE BLOOD COUNT 4.15 K/uL (4.8-10.8)
[2017-05-16 07:11] LABS: BUN/CREATININE RATIO 24.2 (10-20); CALCIUM 8.6 mg/dl (8.5-10.1); CREATININE 1.2 mg/dl (0.60-1.20); POTASSIUM 4.3 mmol/L (3.5-5.1)
[2017-05-16] MEDS: BOOST VANILLA PO SCH ×6 (08:45→17:02)
[2017-05-16] MEDS: MECLIZINE HCL 25 MG TAB PO SCH ×3 (08:45→20:15)
[2017-05-16] MEDS: LISINOPRIL 20 MG TAB PO SCH (08:46)
[2017-05-16] MEDS: HEPARIN SOD 5000 UNIT/0.5 ML CARP SQ SCH ×2 (08:46→20:17)
[2017-05-16] MEDS: AMLODIPINE BESYLATE 5 MG TAB PO SCH (08:46)
[2017-05-16] MEDS: ASPIRIN 81 MG ECTAB PO SCH (08:46)
--- NOTE | 2017-05-16 12:32 | Progress Note ---
Internal Med Progress Note Date of Service: May 16, 2017. Provider Documentation: SUBJECTIVE: Patient feeling much better today. Dizziness has improved and able to ambulate better. But still at times feels a bit off balance. No headache, nausea, vomiting, localized weakness/numbness/tingling, fever, chills, nasal congestion, runny nose, ear pain, cold like symptoms No prior hx of similar symptoms. No association with head movement OBJECTIVE: Vital Signs-as noted below Exam: General-AAOX3, no distress Eyes-No nystagmus, No icterus, EOMI Neck-Supple, No JVD Lungs-AEBE, no wheezing, rhonchi Heart-S1, S2 normal, no murmurs Abdomen-Soft, non tender, non distended, BS present Extremities-No edema Neuro-AAOX3, No nystagmus. Power 5/5 all ext, No sensory deficits. Gait off balance Lab data as noted below. ASSESSMENT & PLAN: This is an 87 year old female who lives alone, with a PMH of HTN, HLD, CKD stage 3 presents with one day history of dizziness. DIZZINESS- Improved Likely peripheral vertigo as says feels off balance when she tries to stand and walks. Probable contributing factor to dizziness: Heat exhaustion as was doing yard work prior to coming, but persistent. Was unable to ambulate without losing balance during this admission. Prior to admission was able to ambulate without assistance. -IV Fluids- Discontinued -Work up - MRI negative for stroke, CT head negative, Orthostats negative. C/o some allergies but no common cold prior to these symptoms. MRA Head/Neck - 1. No abrupt vessel cut off within the intracranial circulation. No intracranial aneurysm identified. 2. Dominant right vertebral artery with diminutive left vertebral artery with mild to moderate narrowing of the intracranial portion of the left vertebral artery. -IV Zofran PRN, Meclizine PRN -PT/OT ordered- Zev performed but didnt help much. PT/ OT recommends rehab as unable to maintain balance while ambulating. Patient hesitant but now agreeable. CKD stage 3 creatinine = 1.2 close to baseline -IVF discontinued HTN blood pressure elevated on admission patient takes HCTZ-Lisinopril at home -HCTZ held and lisinopril increased to 20mg daily. -Stable DVT ppx subq heparin FULL CODE DISPOSITION Patient is improving but continues to feel a bit off balance on ambulation. Not safe to return home as lives by herself. Agreeable for rehab Updated son by bedside. Agreeable with discharge plan OKAY TO DISCHARGE FROM [facility], AWAITING PLACEMENT Vital Signs: Date Time Temp Pulse Resp B/P (MAP) Pulse Ox O2 Delivery O2 Flow Rate FiO2 05/16/17 12:17 99 Room Air 05/16/17 11:04 37.0 81 18 120/72 (88) 99 Room Air 05/16/17 08:04 Room Air 05/16/17 07:27 147/82 (103) 05/16/17 07:26 36.7 94 18 155/75 (101) 100 Room Air 05/16/17 05:28 36.9 76 18 173/66 (101) 96 Room Air 05/16/17 04:20 Room Air 05/16/17 00:16 36.5 80 16 136/74 (94) 97 Room Air 05/16/17 00:15 97 Room Air 05/15/17 20:25 36.8 85 16 150/74 (99) 97 Room Air 141/67 (91) 114/70 (85) 05/15/17 20:00 97 Room Air 05/15/17 17:01 36.7 81 16 123/58 (79) 96 Room Air 05/15/17 15:45 93 Room Air Lab Results: Results Past 24 Hours Test 05/16/17 06:06 Range/Units White Blood Count 4.15 4.8-10.8 K/uL Red Blood Count 3.55 4.2-5.4 M/uL Hemoglobin 9.9 12.0-16.0 g/dL Hematocrit 32.8 37-47 % Mean Corpuscular Volume 92.4 80-100 fL Mean Corpuscular Hemoglobin 27.9 25-34 pg Mean Corpuscular Hemoglobin Concent 30.2 32-36 g/dl Platelet Count 272 130-400 K/uL Mean Platelet Volume 9.6 7.4-10.4 fL Neutrophils (%) (Auto) 53.6 % Lymphocytes (%) (Auto) 23.1 % Monocytes (%) (Auto) 14.0 % Eosinophils (%) (Auto) 8.9 % Basophils (%) (Auto) 0.2 % Neutrophils # (Auto) 2.22 1.4-6.5 K/uL Lymphocytes # (Auto) 0.96 1.2-3.4 K/uL Monocytes # (Auto) 0.58 0.11-0.59 K/uL Eosinophils # (Auto) 0.37 0-0.5 K/uL Basophils # (Auto) 0.01 0-0.2 K/uL RDW Standard Deviation 47.7 36.4-46.3 fL RDW Coefficient of Variation 14.1 11.5-14.5 % Immature Granulocyte % (Auto) 0.2 % Immature Granulocyte # (Auto) 0.01 0.00-0.02 K/uL Sodium Level 144 136-145 mmol/L Potassium Level 4.3 3.5-5.1 mmol/L Chloride Level 111 98-107 mmol/L Carbon Dioxide Level 28 21-32 mmol/L Anion Gap 5.0 3-11 mmol/L Blood Urea Nitrogen 29 7-18 mg/dl Creatinine 1.20 0.60-1.20 mg/dl Est Creatinine Clear Calc Drug Dose 23.3 ml/min Estimated GFR () 46.7 Estimated GFR (Non- 40.3 BUN/Creatinine Ratio 24.2 10-20 Random Glucose 97 70-99 mg/dl Calcium Level 8.6 8.5-10.1 mg/dl
[2017-05-16] MEDS: SIMVASTATIN 20 MG TAB PO SCH (20:14)
[2017-05-17 06:35] LABS: BASO % 0.2 %; BASO ABS # 0.01 K/uL (0-0.2); COMPLETE YES; EOS % 8.4 %; HEMATOCRIT 31.2 % (37-47); IG% 0.2 %; LYMPH % 20.3 %; LYMPH ABS # 0.97 K/uL (1.2-3.4); MEAN CELL VOLUME 93.7 fL (80-100); MEAN CORPUSCULAR HEMOGLOBIN 28.8 pg (25-34); MEAN CORPUSCULAR HGB CONC 30.8 g/dl (32-36); MEAN PLATELET VOLUME 9.9 fL (7.4-10.4); MONO % 13.4 %; NEUT % 57.5 %; PLATELET COUNT 245 K/uL (130-400); RED BLOOD COUNT 3.33 M/uL (4.2-5.4); WHITE BLOOD COUNT 4.79 K/uL (4.8-10.8)
[2017-05-17 07:11] LABS: BUN/CREATININE RATIO 24.2 (10-20); CALCIUM 8.2 mg/dl (8.5-10.1); CREATININE 1.2 mg/dl (0.60-1.20); POTASSIUM 4.2 mmol/L (3.5-5.1)
[2017-05-17 07:30] VITALS: BP 150/73; PULSE 78; TEMP 36.7; O2SAT 96
--- NOTE | 2017-05-17 10:00 | Progress Note ---
Internal Med Progress Note Date of Service: May 17, 2017. Provider Documentation: SUBJECTIVE : Patient feeling much better today. Dizziness has improved and able to ambulate better. But still at times feels a bit off balance. No headache, nausea, vomiting, localized weakness/numbness/tingling, fever, chills, nasal congestion, runny nose, ear pain, cold like symptoms No prior hx of similar symptoms. No association with head movement OBJECTIVE: Vital Signs-as noted below Exam: General-AAOX3, no distress Eyes-No nystagmus, No icterus, EOMI Neck-Supple, No JVD Lungs-AEBE, no wheezing, rhonchi Heart-S1, S2 normal, no murmurs Abdomen-Soft, non tender, non distended, BS present Extremities-No edema Neuro-AAOX3, No nystagmus. Power 5/5 all ext, No sensory deficits. Gait off balance Lab data as noted below. ASSESSMENT & PLAN: This is an 87 year old female who lives alone, with a PMH of HTN, HLD, CKD stage 3 presents with one day history of dizziness. DIZZINESS- Resolved Likely peripheral vertigo as says feels off balance when she tries to stand and walks. Probable contributing factor to dizziness: Heat exhaustion as was doing yard work prior to coming, but persistent. Was unable to ambulate without losing balance initially. Part of it age related too. Prior to admission was able to ambulate without assistance. -S/P IVF -Work up - MRI negative for stroke, CT head negative, Orthostats negative. C/o some allergies but no common cold prior to these symptoms. MRA Head/Neck - 1. No abrupt vessel cut off within the intracranial circulation. No intracranial aneurysm identified. 2. Dominant right vertebral artery with diminutive left vertebral artery with mild to moderate narrowing of the intracranial portion of the left vertebral artery. -Will continue with Meclizine TID prn -PT/OT ordered- Zev performed but didnt help much. PT/ OT recommended rehab as unable to maintain balance while ambulating, however, she has improved significantly and able to ambulate with walker without any symptoms x past 24 hours. CKD stage 3 creatinine = 1.2 close to baseline -IVF discontinued HTN blood pressure elevated on admission patient takes HCTZ-Lisinopril at home -Will re start HCTZ/Lisinopril as at home DVT ppx subq heparin FULL CODE DISPOSITION PT/OT recommended rehab initially as patient was off balance while ambulating. However, doing well for past 24 hours and able to ambulate with walker without any symptoms and feels like she is back to baseline. [facility] denied her and patient/son adamant about not going to SNF but home. On todays evaluation, patient is doing very well and back to her baseline and able to ambulate. Had a discussion with patient--> says if I do not discharge her home she will leave AMA. Discussed with sonVincent over phone- wants discharge to home and I agree as patient refusing SNF and doing well. Son and family will provide additional support to patient in coming weeks. OK to discharge home with home health services. Walker prescription will be provided. Vital Signs: Date Time Temp Pulse Resp B/P (MAP) Pulse Ox O2 Delivery O2 Flow Rate FiO2 05/17/17 07:33 Room Air 05/17/17 07:30 36.7 78 18 150/73 (98) 96 Room Air 05/17/17 00:00 Room Air 05/16/17 23:46 36.9 85 20 149/75 (99) 97 Room Air 05/16/17 17:12 36.4 88 18 151/83 (105) 95 Room Air 05/16/17 16:00 95 Room Air 05/16/17 14:42 37.0 81 18 99 05/16/17 12:17 99 Room Air 05/16/17 11:04 37.0 81 18 120/72 (88) 99 Room Air Lab Results: Results Past 24 Hours Test 05/17/17 05:43 Range/Units White Blood Count 4.79 4.8-10.8 K/uL Red Blood Count 3.33 4.2-5.4 M/uL Hemoglobin 9.6 12.0-16.0 g/dL Hematocrit 31.2 37-47 % Mean Corpuscular Volume 93.7 80-100 fL Mean Corpuscular Hemoglobin 28.8 25-34 pg Mean Corpuscular Hemoglobin Concent 30.8 32-36 g/dl Platelet Count 245 130-400 K/uL Mean Platelet Volume 9.9 7.4-10.4 fL Neutrophils (%) (Auto) 57.5 % Lymphocytes (%) (Auto) 20.3 % Monocytes (%) (Auto) 13.4 % Eosinophils (%) (Auto) 8.4 % Basophils (%) (Auto) 0.2 % Neutrophils # (Auto) 2.76 1.4-6.5 K/uL Lymphocytes # (Auto) 0.97 1.2-3.4 K/uL Monocytes # (Auto) 0.64 0.11-0.59 K/uL Eosinophils # (Auto) 0.40 0-0.5 K/uL Basophils # (Auto) 0.01 0-0.2 K/uL RDW Standard Deviation 49.0 36.4-46.3 fL RDW Coefficient of Variation 14.4 11.5-14.5 % Immature Granulocyte % (Auto) 0.2 % Immature Granulocyte # (Auto) 0.01 0.00-0.02 K/uL Nucleated RBC Absolute Count (auto) 0.00 0-0 K/uL Nucleated Red Blood Cells % 0.0 % Sodium Level 145 136-145 mmol/L Potassium Level 4.2 3.5-5.1 mmol/L Chloride Level 113 98-107 mmol/L Carbon Dioxide Level 27 21-32 mmol/L Anion Gap 5.0 3-11 mmol/L Blood Urea Nitrogen 29 7-18 mg/dl Creatinine 1.20 0.60-1.20 mg/dl Est Creatinine Clear Calc Drug Dose 23.3 ml/min Estimated GFR () 46.7 Estimated GFR (Non- 40.3 BUN/Creatinine Ratio 24.2 10-20 Random Glucose 84 70-99 mg/dl Calcium Level 8.2 8.5-10.1 mg/dl
[2017-05-17] MEDS ORDERED: LSN20 PO (10:02)
[2017-05-17] MEDS ORDERED: ANT25 PO (10:02)
[2017-05-17] MEDS ORDERED: NRV5 PO (10:02)
--- NOTE | 2017-05-17 10:07 | Discharge Summary ---
Discharge Summary Date of Service May 17, 2017. Discharge Summary Admission Date: May 13, 2017 at 14:15 Discharge Date: May 17, 2017 Discharge Disposition: Home with services Principal Diagnosis: 1. Peripheral vertigo, stroke ruled out Secondary Diagnoses/Problems: 1. HTN 2. CKD - III Procedures: Tele monitoring CT head MRI Brain MRA head/neck PT/OT Consultations: None Pending Studies/Follow-Up: Instructions / Follow-Up Instructions / Follow-Up MEDICATION CHANGES: 1. Hydrochlorthiazide discontinued as has chronic kidney disease 2. Amlodipine 5 mg added and lisinopril increased to 20 mg daily as HCTZ discontinued 3. Meclizine 25 mg PO three times a day as needed for vertigo FOLLOW UP 1. Follow up with PCP, Dr Pelletier 05/22/17 at 10:45 AM RECOMMEND Outpatient PT/OT Walker to be used while ambulating- ALWAYS Medication Reconciliation New Medications: Amlodipine Besylate (Amlodipine Besylate) 5 Mg Tab 5 MG PO QAM for 30 Days, #30 TAB 2 Refills Lisinopril (Lisinopril) 20 Mg Tab 20 MG PO QAM for 30 Days, #30 TAB 2 Refills Meclizine HCl (Meclizine HCl) 25 Mg Tab 25 MG PO TID PRN for vertigo for 10 Days, #20 TAB Continued Medications: Aspirin (Aspirin 81) 81 Mg Tab 81 MG PO DAILY Cholecalciferol (Vitamin D3) 1,000 Inter.unit Tab 1000 INTER.UNIT PO QAM for 30 Days, TAB Omeprazole (Prilosec) 20 Mg Cap 20 MG PO DAILY Simvastatin (Simvastatin) 20 Mg Tab 20 MG PO HS Discontinued Medications: Hctz/Lisinopril (Lisinopril/Hctz 10/12.5 Mg) 1 Ea Tab 1 TAB PO DAILY, TAB Admission Information HPI (per Admitting provider): This is an 87 year old female who lives alone, with a PMH of HTN, HLD, CKD stage 3 presents with a one day history of dizziness, weakness, nausea/vomiting - she states that she was working in the yard yesterday doing some gardening - states that she got dizzy and went back inside. At night, she tried walking to the bathroom and vomiting numerous times due to dizziness; had to crawl to get to the bathroom; remained dizzy, weak, tired today (May 13) and so presented to the ER. Has never had this before. Was not sick prior to this event. Son mentions that she does not drink enough water. Patient denies chest pain or shortness of breath. No fevers/chills. Physical Exam (per Admitting): General Appearance: no apparent distress Head: normocephalic, atraumatic Eyes: normal inspection ENT: hearing grossly normal Neck: supple Respiratory/Chest: chest non-tender, lungs clear, normal breath sounds, no respiratory distress, no accessory muscle use Cardiovascular: regular rate, rhythm, no edema, no murmur Abdomen/GI: normal bowel sounds, non tender, soft Extremities/Musculoskelatal: no calf tenderness, normal capillary refill, no pedal edema Neurologic/Psych: no motor/sensory deficits, alert, normal mood/affect Skin: normal color Lymphatic: no adenopathy Hospital Course This is an 87 year old female who lives alone, with a PMH of HTN, HLD, CKD stage 3 presents with one day history of dizziness. DIZZINESS- Resolved Likely peripheral vertigo as says feels off balance when she tries to stand and walks. Probable contributing factor to dizziness: Heat exhaustion as was doing yard work prior to coming, but persistent. Was unable to ambulate without losing balance initially. Part of it age related too. Prior to admission was able to ambulate without assistance. -S/P IVF -Work up - MRI negative for stroke, CT head negative, Orthostats negative. C/o some allergies but no common cold prior to these symptoms. MRA Head/Neck - 1. No abrupt vessel cut off within the intracranial circulation. No intracranial aneurysm identified. 2. Dominant right vertebral artery with diminutive left vertebral artery with mild to moderate narrowing of the intracranial portion of the left vertebral artery. -Will continue with Meclizine TID prn -PT/OT ordered- Zev performed but didnt help much. PT/ OT recommended rehab as unable to maintain balance while ambulating, however, she has improved significantly and able to ambulate with walker without any symptoms x past 24 hours. CKD stage 3 creatinine = 1.2 close to baseline -IVF discontinued HTN blood pressure elevated on admission patient takes HCTZ-Lisinopril at home -Will re start HCTZ/Lisinopril as at home DVT ppx subq heparin FULL CODE DISPOSITION PT/OT recommended rehab initially as patient was off balance while ambulating. However, doing well for past 24 hours and able to ambulate with walker without any symptoms and feels like she is back to baseline. [facility] denied her and patient/son adamant about not going to SNF but home. On todays evaluation, patient is doing very well and back to her baseline and able to ambulate. Had a discussion with patient--> says if I do not discharge her home she will leave AMA. Discussed with sonVincent over phone- wants discharge to home and I agree as patient refusing SNF and doing well. Son and family will provide additional support to patient in coming weeks. OK to discharge home with home health services. Walker prescription will be provided. Total time spent on discharge = 35 minutes This includes examination of the patient, discharge planning, medication reconciliation, and communication with other providers. Discharge Instructions Discharge Goals Goal(s): Decrease discomfort, Improve function Activity Recommendations Activity Limitations: per Instructions/Follow-up section (with assistance- walker) . Instructions / Follow-Up Instructions / Follow-Up MEDICATION CHANGES: 1. Hydrochlorthiazide discontinued as has chronic kidney disease 2. Amlodipine 5 mg added and lisinopril increased to 20 mg daily as HCTZ discontinued 3. Meclizine 25 mg PO three times a day as needed for vertigo FOLLOW UP 1. Follow up with PCP, Dr Pelletier 05/22/17 at 10:45 AM RECOMMEND Outpatient PT/OT Walker to be used while ambulating- ALWAYS Current Hospital Diet Patient's current hospital diet: Regular Diet Discharge Diet Recommended Diet: Regular Diet Pending Studies Studies pending at discharge: no Medical Emergencies . Who to Call and When: Medical Emergencies: If at any time you feel your situation is an emergency, please call 911 immediately. . Non-Emergent Contact Non-Emergency issues call your: Primary Care Provider . . "Provider Documentation" section prepared by Mago Isaacs. . VTE Core Measure Inpt VTE Proph given/why not?: Unfractionated heparin SQ
[2017-05-17] MEDS: MECLIZINE HCL 25 MG TAB PO SCH (10:40)
[2017-05-17] MEDS: AMLODIPINE BESYLATE 5 MG TAB PO SCH (10:41)
[2017-05-17] MEDS: ASPIRIN 81 MG ECTAB PO SCH (10:41)
[2017-05-17] MEDS: LISINOPRIL 20 MG TAB PO SCH (10:41)
[2017-05-17] MEDS: HEPARIN SOD 5000 UNIT/0.5 ML CARP SQ SCH (10:42)
[2017-05-17] MEDS: BOOST VANILLA PO SCH ×2 (10:45)
[2017-05-17 10:50] VITALS: BP 150/73; PULSE 78; TEMP 36.7; O2SAT 96
--- NOTE | 2017-05-25 09:32 | EDITING REQUIRED CODING QUERY ---
CQSUPPORTING DIAGNOSIS NEEDED A supporting diagnosis is required for the test/procedure performed on this patient in order for us to be reimbursed by the patient's insurance. Please provide a supporting diagnosis for the following test/procedure listed below next to the test name along with your signature. *If there is no additional diagnosis for this patient that would support the following test/procedure please document that below next to the test/procedure. Test(s)/Procedure(s) that require a supporting diagnosis: DOS 05/13/17 [facility] (PT OR OT) Provider Signature: Date: Thank you Marquita Soares Health Information Management Once completed, please kindly fax back to [phone] For questions please call [phone]
== END 2017-05-17 12:20 | disposition home health service (06) ==
LOC: EDBD 10:59 → C.EDC 11:00 → C.2E 14:15 → EDBEDREQ 14:40 → ENRESERV 14:50 → CANBEDREQ 16:30 → ENRESERV 05-16 15:22 → C.4E 05-16 15:56
PROVIDERS: ADMIT Family Medicine; ATTEND Internal Medicine
DX: R42 Dizziness and giddiness (principal); H81.399 Other peripheral vertigo, unspecified ear; I12.9 Hypertensive chronic kidney disease with stage 1 through stage 4 chronic kidney disease, or unspecified chronic kidney disease; N18.3 Chronic kidney disease, stage 3 (moderate); E78.5 Hyperlipidemia, unspecified; Z79.82 Long term (current) use of aspirin; Z79.899 Other long term (current) drug therapy